=== PATIENT | female | born 2000 | race Caucasian/White ===

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

== ENCOUNTER 2025-02-02 12:18 | Emergency (ER) | payer MEDICAID | END 2025-02-02 14:02 | disposition home or self-care (01) | LOC: MW.ED 12:18 | DX: S92.535A Nondisplaced fracture of distal phalanx of left lesser toe(s), initial encounter for closed fracture (principal); S90.122A Contusion of left lesser toe(s) without damage to nail, initial encounter; Z88.8 Allergy status to other drugs, medicaments and biological substances; Z88.0 Allergy status to penicillin; Z91.040 Latex allergy status; X50.1XXA Overexertion from prolonged static or awkward postures, initial encounter | CPT/HCPCS: 73660; 81025; 99283; A9270; 99282 ==

== ENCOUNTER 2025-03-16 11:41 | Emergency (ER) | payer SELFPAY ==
[2025-03-16] MEDS: Benzocaine 20% Topical Spray UD MUCMEM ONE (12:55)
[2025-03-16] MEDS: Lidocaine 2% Viscous Solution 15 ML UD PO ONE (12:56)
[2025-03-16] MEDS: Orphenadrine 60 MG/2 ML Inj IM ONE (12:56)
== END 2025-03-16 14:13 | disposition home or self-care (01) ==
LOC: MW.ED 11:41
DX: J40 Bronchitis, not specified as acute or chronic (principal); M54.2 Cervicalgia; K08.89 Other specified disorders of teeth and supporting structures; Z75.3 Unavailability and inaccessibility of health-care facilities; Z91.040 Latex allergy status; Z88.0 Allergy status to penicillin; Z88.8 Allergy status to other drugs, medicaments and biological substances
CPT/HCPCS: 71046; 96372; 99283; A9270; J2360; J3490

== ENCOUNTER 2025-04-01 15:34 | Emergency (ER) | payer MEDICAID ==
[2025-04-01 16:15] LABS: BASOPHILS ABSOLUTE AUTO 0.04 K/uL (0.00-0.20); BASOPHILS PERCENT AUTO 0.5 % (0.0-1.0); EOSINOPHILS ABSOLUTE AUTO 0.12 K/uL (0.00-0.45); EOSINOPHILS PERCENT AUTO 1.4 % (0.0-6.0); IMMATURE GRAN ABSOLUTE AUTO 0.02 K/uL (0.00-0.05); IMMATURE GRAN PERCENT AUTO 0.2 % (0.0-0.4); LYMPHOCYTES ABSOLUTE AUTO 2.82 K/uL (1.00-4.80); LYMPHOCYTES PERCENT AUTO 32.0 % (24.0-44.0); MEAN PLATELET VOLUME 9.7 fL (9.4-12.3); MONOCYTES ABSOLUTE AUTO 0.58 K/uL (0.00-0.80); MONOCYTES PERCENT AUTO 6.6 % (0.0-8.0); NEUTROPHILS ABSOLUTE AUTO 5.23 K/uL (1.80-7.70); NEUTROPHILS PERCENT AUTO 59.3 % (41.0-71.0); NRBC ABSOLUTE 0.00 K/uL (0.00-0.02); NRBC PERCENT 0.0 /100WBC (0.0-0.2); PLATELET COUNT,PLT 315 K/uL (150-400); RED BLOOD CELL COUNT 4.35 M/uL (4.10-5.30); WHITE BLOOD CELL COUNT,WBC 8.81 K/uL (3.9-11.3)
[2025-04-01 16:37] LABS: A/G RATIO 0.9 (0.9-1.6); ALANINE AMINOTRANSFERASE,ALT 32.0 IU/L (14-63); ASPARTATE AMNIOTRANSFERASE,AST 14.0 IU/L (15-37); BILIRUBIN TOTAL 0.2 mg/dL (0.2-1.0); BLOOD UREA NITROGEN,BUN 8.0 mg/dL (7.0-18.0); CARBON DIOXIDE,CO2 26.9 mmol/L (21.0-32.0); CHLORIDE,CL 106.0 mmol/L (98-107); CREATININE 0.7 mg/dL (0.6-1.0); EST CRCL DRUG DOSING (CG) 101.63 mL/min; GLUCOSE RANDOM 118.0 mg/dL (74-106); POTASSIUM,K 3.6 mmol/L (3.5-5.1); PROTEIN TOTAL,TP 7.4 g/dL (6.4-8.2); SODIUM,NA 143.0 mmol/L (136-145)
[2025-04-01 16:38] LABS: ESTIMATED GFR 123.0 mL/min (>60)
[2025-04-01 17:14] LABS: APPEARANCE,URINE CLOUDY; GLUCOSE,URINE NEGATIVE (NEGATIVE); OCCULT BLOOD,URINE MODERATE (NEGATIVE)
[2025-04-01 17:26] LABS: EPITHELIAL CELLS,URINE MODERATE (NONE-FEW)
== END 2025-04-01 17:34 | disposition home or self-care (01) ==
LOC: MW.ED 15:34
DX: N39.0 Urinary tract infection, site not specified (principal); D64.9 Anemia, unspecified; Z88.6 Allergy status to analgesic agent; Z88.0 Allergy status to penicillin; Z91.013 Allergy to seafood; Z91.040 Latex allergy status; Z79.899 Other long term (current) drug therapy; Z75.3 Unavailability and inaccessibility of health-care facilities
CPT/HCPCS: 36415; 80053; 81001; 83690; 85025; 87086; 96360; 99284; J7030; 99283

== ENCOUNTER 2025-04-12 12:54 | Inpatient (IN) | payer MEDICAID ==
[2025-04-12] MEDS ORDERED: Sodium Chloride 0.9% 10 ML Syringe FLUSH PRN ×2 (13:50→22:02)
[2025-04-12] MEDS ORDERED: Sodium Chloride 0.9% 2.5 ML Syringe FLUSH PRN ×2 (13:50→22:02)
[2025-04-12 14:12] LABS: BASOPHILS ABSOLUTE AUTO 0.04 K/uL (0.00-0.20); BASOPHILS PERCENT AUTO 0.3 % (0.0-1.0); EOSINOPHILS ABSOLUTE AUTO 0.12 K/uL (0.00-0.45); EOSINOPHILS PERCENT AUTO 1.0 % (0.0-6.0); IMMATURE GRAN ABSOLUTE AUTO 0.04 K/uL (0.00-0.05); IMMATURE GRAN PERCENT AUTO 0.3 % (0.0-0.4); LYMPHOCYTES ABSOLUTE AUTO 2.52 K/uL (1.00-4.80); LYMPHOCYTES PERCENT AUTO 22.0 % (24.0-44.0); MEAN PLATELET VOLUME 9.7 fL (9.4-12.3); MONOCYTES ABSOLUTE AUTO 0.95 K/uL (0.00-0.80); MONOCYTES PERCENT AUTO 8.3 % (0.0-8.0); NEUTROPHILS ABSOLUTE AUTO 7.77 K/uL (1.80-7.70); NEUTROPHILS PERCENT AUTO 68.1 % (41.0-71.0); NRBC ABSOLUTE 0.00 K/uL (0.00-0.02); NRBC PERCENT 0.0 /100WBC (0.0-0.2); PLATELET COUNT,PLT 309 K/uL (150-400); RED BLOOD CELL COUNT 4.69 M/uL (4.10-5.30); WHITE BLOOD CELL COUNT,WBC 11.44 K/uL (3.9-11.3)
[2025-04-12 14:13] LABS: APPEARANCE,URINE CLOUDY; GLUCOSE,URINE NEGATIVE (NEGATIVE); OCCULT BLOOD,URINE LARGE (NEGATIVE)
[2025-04-12 14:17] LABS: EPITHELIAL CELLS,URINE MODERATE (NONE-FEW)
[2025-04-12 14:34] LABS: A/G RATIO 0.9 (0.9-1.6); ALANINE AMINOTRANSFERASE,ALT 31.0 IU/L (14-63); ASPARTATE AMNIOTRANSFERASE,AST 15.0 IU/L (15-37); BILIRUBIN TOTAL 0.2 mg/dL (0.2-1.0); BLOOD UREA NITROGEN,BUN 12.0 mg/dL (7.0-18.0); CARBON DIOXIDE,CO2 28.4 mmol/L (21.0-32.0); CHLORIDE,CL 105.0 mmol/L (98-107); CREATININE 0.7 mg/dL (0.6-1.0); EST CRCL DRUG DOSING (CG) 115.01 mL/min; GLUCOSE RANDOM 97.0 mg/dL (74-106); POTASSIUM,K 4.3 mmol/L (3.5-5.1); PROTEIN TOTAL,TP 7.6 g/dL (6.4-8.2); SODIUM,NA 141.0 mmol/L (136-145)
[2025-04-12 14:35] LABS: ESTIMATED GFR 123.0 mL/min (>60)
[2025-04-12] MEDS: Orphenadrine 60 MG/2 ML Inj IV ONE (15:49)
[2025-04-12] MEDS: Ondansetron 4 MG/2 ML SDV IVPUSH ONE ×2 (15:49→16:54)
[2025-04-12] MEDS: Ketorolac 30 MG/ML SDV IVPUSH ONE (16:54)
[2025-04-12] MEDS: cefTRIAXone 1 GM in Water For Injection, Sterile 10 ML IVPUSH ONE (18:12)
[2025-04-12] MEDS: Iopamidol 755 MG/ML 500 ML Multipack Bottle IVPUSH STA (19:56)
[2025-04-12] MEDS ORDERED: Naloxone 0.4 MG/ML SDV IVPUSH PRN (21:58)
[2025-04-12] MEDS: Ketorolac 30 MG/ML SDV IVPUSH PRN (23:10)
[2025-04-12] MEDS: Pantoprazole 40 MG in Sodium Chloride 0.9% 20 ML IVPUSH SCH (23:11)
[2025-04-12] MEDS: Ondansetron 4 MG/2 ML SDV IVPUSH PRN (23:11)
[2025-04-13 06:03] LABS: BASOPHILS ABSOLUTE AUTO 0.03 K/uL (0.00-0.20); BASOPHILS PERCENT AUTO 0.1 % (0.0-1.0); EOSINOPHILS ABSOLUTE AUTO 0.00 K/uL (0.00-0.45); EOSINOPHILS PERCENT AUTO 0.0 % (0.0-6.0); IMMATURE GRAN ABSOLUTE AUTO 0.45 K/uL (0.00-0.05); IMMATURE GRAN PERCENT AUTO 1.8 % (0.0-0.4); LYMPHOCYTES ABSOLUTE AUTO 0.48 K/uL (1.00-4.80); LYMPHOCYTES PERCENT AUTO 1.9 % (24.0-44.0); MEAN PLATELET VOLUME 10.2 fL (9.4-12.3); MONOCYTES ABSOLUTE AUTO 1.09 K/uL (0.00-0.80); MONOCYTES PERCENT AUTO 4.3 % (0.0-8.0); NEUTROPHILS ABSOLUTE AUTO 23.41 K/uL (1.80-7.70); NEUTROPHILS PERCENT AUTO 91.9 % (41.0-71.0); NRBC ABSOLUTE 0.00 K/uL (0.00-0.02); NRBC PERCENT 0.0 /100WBC (0.0-0.2); PLATELET COUNT,PLT 229 K/uL (150-400); RED BLOOD CELL COUNT 4.11 M/uL (4.10-5.30); WHITE BLOOD CELL COUNT,WBC 25.46 K/uL (3.9-11.3)
[2025-04-13 06:29] LABS: BLOOD UREA NITROGEN,BUN 15.0 mg/dL (7.0-18.0); CARBON DIOXIDE,CO2 25.4 mmol/L (21.0-32.0); CHLORIDE,CL 108.0 mmol/L (98-107); CREATININE 1.0 mg/dL (0.6-1.0); EST CRCL DRUG DOSING (CG) 80.51 mL/min; GLUCOSE RANDOM 141.0 mg/dL (74-106); POTASSIUM,K 3.7 mmol/L (3.5-5.1); SODIUM,NA 142.0 mmol/L (136-145)
[2025-04-13 06:36] LABS: ESTIMATED GFR 80.0 mL/min (>60)
[2025-04-13 10:18] LABS: LACTIC ACID 2.4 mmol/L (0.4-2.0)
[2025-04-13] MEDS ORDERED: cefTRIAXone 2 GM in Water For Injection, Sterile 20 ML IVPUSH SCH (15:00)
[2025-04-14 05:43] LABS: MEAN PLATELET VOLUME 10.4 fL (9.4-12.3); NRBC ABSOLUTE 0.00 K/uL (0.00-0.02); NRBC PERCENT 0.0 /100WBC (0.0-0.2); PLATELET COUNT,PLT 190 K/uL (150-400); RED BLOOD CELL COUNT 3.42 M/uL (4.10-5.30); WHITE BLOOD CELL COUNT,WBC 19.30 K/uL (3.9-11.3)
[2025-04-14 06:00] LABS: BASOPHILS ABSOLUTE MAN 0.19 K/uL (0.00-0.20); BASOPHILS PERCENT MAN 1 % (0-1); EOSINOPHILS ABSOLUTE MAN 0.19 K/uL (0.00-0.45); EOSINOPHILS PERCENT MAN 1 % (0-6); LYMPHOCYTES ABSOLUTE MAN 3.86 K/uL (1.00-4.80); LYMPHOCYTES PERCENT MAN 20 % (24-44); MONOCYTES ABSOLUTE MAN 1.54 K/uL (0.00-0.80); MONOCYTES PERCENT MAN 8 % (0-8); SEG NEUTROPHILS ABSOLUTE MAN 13.51 K/uL (1.80-7.70); SEG NEUTROPHILS PERCENT MAN 70 % (41-71)
[2025-04-14 06:06] LABS: BLOOD UREA NITROGEN,BUN 11.0 mg/dL (7.0-18.0); CARBON DIOXIDE,CO2 23.9 mmol/L (21.0-32.0); CHLORIDE,CL 115.0 mmol/L (98-107); CREATININE 0.8 mg/dL (0.6-1.0); EST CRCL DRUG DOSING (CG) 100.63 mL/min; GLUCOSE RANDOM 120.0 mg/dL (74-106); POTASSIUM,K 3.9 mmol/L (3.5-5.1); SODIUM,NA 144.0 mmol/L (136-145)
[2025-04-14 06:13] LABS: ESTIMATED GFR 105.0 mL/min (>60)
[2025-04-15 05:37] LABS: BASOPHILS ABSOLUTE AUTO 0.04 K/uL (0.00-0.20); BASOPHILS PERCENT AUTO 0.3 % (0.0-1.0); EOSINOPHILS ABSOLUTE AUTO 0.22 K/uL (0.00-0.45); EOSINOPHILS PERCENT AUTO 1.8 % (0.0-6.0); IMMATURE GRAN ABSOLUTE AUTO 0.05 K/uL (0.00-0.05); IMMATURE GRAN PERCENT AUTO 0.4 % (0.0-0.4); LYMPHOCYTES ABSOLUTE AUTO 3.55 K/uL (1.00-4.80); LYMPHOCYTES PERCENT AUTO 29.8 % (24.0-44.0); MEAN PLATELET VOLUME 10.3 fL (9.4-12.3); MONOCYTES ABSOLUTE AUTO 0.76 K/uL (0.00-0.80); MONOCYTES PERCENT AUTO 6.4 % (0.0-8.0); NEUTROPHILS ABSOLUTE AUTO 7.30 K/uL (1.80-7.70); NEUTROPHILS PERCENT AUTO 61.3 % (41.0-71.0); NRBC ABSOLUTE 0.00 K/uL (0.00-0.02); NRBC PERCENT 0.0 /100WBC (0.0-0.2); PLATELET COUNT,PLT 230 K/uL (150-400); RED BLOOD CELL COUNT 3.60 M/uL (4.10-5.30); WHITE BLOOD CELL COUNT,WBC 11.92 K/uL (3.9-11.3)
[2025-04-15 06:07] LABS: BLOOD UREA NITROGEN,BUN 7.0 mg/dL (7.0-18.0); CARBON DIOXIDE,CO2 28.2 mmol/L (21.0-32.0); CHLORIDE,CL 110.0 mmol/L (98-107); CREATININE 0.7 mg/dL (0.6-1.0); EST CRCL DRUG DOSING (CG) 115.01 mL/min; GLUCOSE RANDOM 110.0 mg/dL (74-106); POTASSIUM,K 4.1 mmol/L (3.5-5.1); SODIUM,NA 144.0 mmol/L (136-145)
[2025-04-15 06:09] LABS: ESTIMATED GFR 123.0 mL/min (>60)
[2025-04-15] MEDS: diphenhydrAMINE 50 MG/ML SDV IVPUSH ONE (12:05)
== END 2025-04-15 11:50 | disposition home or self-care (01) | DRG 690 ==
LOC: MW.ED 12:54 → MW.MS 18:02 → OBSVTOIN 18:02 → UNDOADMOB 18:33 → MW.MS 18:33
PROVIDERS: ADMIT Internal Medicine; ATTEND Internal Medicine
DX: N13.2 Hydronephrosis with renal and ureteral calculous obstruction (principal); N39.0 Urinary tract infection, site not specified; N10 Acute pyelonephritis; E87.20 Acidosis, unspecified; E86.0 Dehydration; K21.9 Gastro-esophageal reflux disease without esophagitis; Z75.3 Unavailability and inaccessibility of health-care facilities; Z88.8 Allergy status to other drugs, medicaments and biological substances; Z88.0 Allergy status to penicillin; Z91.040 Latex allergy status; Z91.013 Allergy to seafood; Z98.891 History of uterine scar from previous surgery
CPT/HCPCS: 36415; 74176; 80053; 81001; 81025; 83690; 83735; 85025; 87086; 87088; 87186; 96361; 96374; 96375; 96376; 99284; A9270; J1885; J2270; J2360; J2405 ×2; J7030; 80048; 83605; 87040; G0378; J0692; J0696; J1171; J2470

== ENCOUNTER 2025-05-27 14:07 | Emergency (ER) | payer MEDICAID | END 2025-05-27 15:04 | disposition home or self-care (01) | LOC: MW.ED 14:07 | DX: M25.561 Pain in right knee (principal); Z91.040 Latex allergy status; Z88.8 Allergy status to other drugs, medicaments and biological substances; Z88.0 Allergy status to penicillin; Z88.6 Allergy status to analgesic agent; Z91.013 Allergy to seafood; Z75.3 Unavailability and inaccessibility of health-care facilities; X58.XXXA Exposure to other specified factors, initial encounter | CPT/HCPCS: 73562-26-RT; 73562-RT; 99283 ==

== ENCOUNTER 2025-06-07 13:06 | Emergency (ER) | payer MEDICAID ==
[2025-06-07 13:39] LABS: GLUCOSE,URINE NEGATIVE (NEGATIVE); OCCULT BLOOD,URINE SMALL (NEGATIVE)
[2025-06-07 13:41] LABS: APPEARANCE,URINE HAZY
[2025-06-07] MEDS ORDERED: Sodium Chloride 0.9% 10 ML Syringe FLUSH PRN (13:44)
[2025-06-07] MEDS ORDERED: Sodium Chloride 0.9% 2.5 ML Syringe FLUSH PRN (13:44)
[2025-06-07 13:48] LABS: EPITHELIAL CELLS,URINE MANY (NONE-FEW)
[2025-06-07 13:49] LABS: BASOPHILS ABSOLUTE AUTO 0.02 K/uL (0.00-0.20); BASOPHILS PERCENT AUTO 0.2 % (0.0-1.0); EOSINOPHILS ABSOLUTE AUTO 0.10 K/uL (0.00-0.45); EOSINOPHILS PERCENT AUTO 1.0 % (0.0-6.0); IMMATURE GRAN ABSOLUTE AUTO 0.03 K/uL (0.00-0.05); IMMATURE GRAN PERCENT AUTO 0.3 % (0.0-0.4); LYMPHOCYTES ABSOLUTE AUTO 2.76 K/uL (1.00-4.80); LYMPHOCYTES PERCENT AUTO 27.1 % (24.0-44.0); MEAN PLATELET VOLUME 9.7 fL (9.4-12.3); MONOCYTES ABSOLUTE AUTO 0.69 K/uL (0.00-0.80); MONOCYTES PERCENT AUTO 6.8 % (0.0-8.0); NEUTROPHILS ABSOLUTE AUTO 6.60 K/uL (1.80-7.70); NEUTROPHILS PERCENT AUTO 64.6 % (41.0-71.0); NRBC ABSOLUTE 0.00 K/uL (0.00-0.02); NRBC PERCENT 0.0 /100WBC (0.0-0.2); PLATELET COUNT,PLT 303 K/uL (150-400); RED BLOOD CELL COUNT 4.28 M/uL (4.10-5.30); WHITE BLOOD CELL COUNT,WBC 10.20 K/uL (3.9-11.3)
[2025-06-07 14:01] LABS: A/G RATIO 0.9 (0.9-1.6); ALANINE AMINOTRANSFERASE,ALT 26.0 IU/L (14-63); ASPARTATE AMNIOTRANSFERASE,AST 12.0 IU/L (15-37); BILIRUBIN TOTAL 0.1 mg/dL (0.2-1.0); BLOOD UREA NITROGEN,BUN 12.0 mg/dL (7.0-18.0); CARBON DIOXIDE,CO2 28.3 mmol/L (21.0-32.0); CHLORIDE,CL 107.0 mmol/L (98-107); CREATININE 0.7 mg/dL (0.6-1.0); EST CRCL DRUG DOSING (CG) 101.63 mL/min; GLUCOSE RANDOM 106.0 mg/dL (74-106); POTASSIUM,K 3.8 mmol/L (3.5-5.1); PROTEIN TOTAL,TP 7.3 g/dL (6.4-8.2); SODIUM,NA 142.0 mmol/L (136-145)
[2025-06-07 14:08] LABS: ESTIMATED GFR 123.0 mL/min (>60)
== END 2025-06-07 14:54 | disposition home or self-care (01) ==
LOC: MW.ED 13:06
DX: N10 Acute pyelonephritis (principal); K21.9 Gastro-esophageal reflux disease without esophagitis; Z88.6 Allergy status to analgesic agent; Z91.040 Latex allergy status; Z91.013 Allergy to seafood; Z88.8 Allergy status to other drugs, medicaments and biological substances
CPT/HCPCS: 36415; 80053; 81001; 83690; 83735; 85025; 96360; 99284; A9270; J7030; 99283

== ENCOUNTER 2025-06-10 16:18 | Emergency (ER) | payer MEDICAID ==
[2025-06-10] MEDS ORDERED: Sodium Chloride 0.9% 10 ML Syringe FLUSH PRN (16:23)
[2025-06-10] MEDS ORDERED: Sodium Chloride 0.9% 2.5 ML Syringe FLUSH PRN (16:23)
[2025-06-10 17:18] LABS: BASOPHILS ABSOLUTE AUTO 0.03 K/uL (0.00-0.20); BASOPHILS PERCENT AUTO 0.3 % (0.0-1.0); EOSINOPHILS ABSOLUTE AUTO 0.12 K/uL (0.00-0.45); EOSINOPHILS PERCENT AUTO 1.1 % (0.0-6.0); IMMATURE GRAN ABSOLUTE AUTO 0.02 K/uL (0.00-0.05); IMMATURE GRAN PERCENT AUTO 0.2 % (0.0-0.4); LYMPHOCYTES ABSOLUTE AUTO 2.75 K/uL (1.00-4.80); LYMPHOCYTES PERCENT AUTO 25.5 % (24.0-44.0); MEAN PLATELET VOLUME 9.2 fL (9.4-12.3); MONOCYTES ABSOLUTE AUTO 0.82 K/uL (0.00-0.80); MONOCYTES PERCENT AUTO 7.6 % (0.0-8.0); NEUTROPHILS ABSOLUTE AUTO 7.05 K/uL (1.80-7.70); NEUTROPHILS PERCENT AUTO 65.3 % (41.0-71.0); NRBC ABSOLUTE 0.00 K/uL (0.00-0.02); NRBC PERCENT 0.0 /100WBC (0.0-0.2); PLATELET COUNT,PLT 304 K/uL (150-400); RED BLOOD CELL COUNT 4.25 M/uL (4.10-5.30); WHITE BLOOD CELL COUNT,WBC 10.79 K/uL (3.9-11.3)
[2025-06-10 17:40] LABS: A/G RATIO 0.9 (0.9-1.6); ALANINE AMINOTRANSFERASE,ALT 25.0 IU/L (14-63); ASPARTATE AMNIOTRANSFERASE,AST 12.0 IU/L (15-37); BILIRUBIN TOTAL 0.2 mg/dL (0.2-1.0); BLOOD UREA NITROGEN,BUN 14.0 mg/dL (7.0-18.0); CARBON DIOXIDE,CO2 27.6 mmol/L (21.0-32.0); CHLORIDE,CL 105.0 mmol/L (98-107); CREATININE 0.7 mg/dL (0.6-1.0); EST CRCL DRUG DOSING (CG) 101.63 mL/min; GLUCOSE RANDOM 79.0 mg/dL (74-106); POTASSIUM,K 3.8 mmol/L (3.5-5.1); PROTEIN TOTAL,TP 7.6 g/dL (6.4-8.2); SODIUM,NA 141.0 mmol/L (136-145)
[2025-06-10 17:43] LABS: ESTIMATED GFR 123.0 mL/min (>60)
[2025-06-10] MEDS: Ondansetron 4 MG/2 ML SDV IVPUSH ONE ×2 (18:18→20:15)
[2025-06-10 18:35] LABS: APPEARANCE,URINE SLT CLOUDY; GLUCOSE,URINE NEGATIVE (NEGATIVE); OCCULT BLOOD,URINE SMALL (NEGATIVE)
[2025-06-10 18:40] LABS: EPITHELIAL CELLS,URINE RARE (NONE-FEW)
[2025-06-10 21:48] LABS: CANDIDA DNA PROBE NEGATIVE (NEGATIVE); GARDNERELLA DNA PROBE POSITIVE (NEGATIVE); TRICHOMONAS DNA PROBE NEGATIVE (NEGATIVE)
[2025-06-10 22:28] LABS: C. TRACHOMATIS BY PCR NOT DETECTED; N. GONORRHOEAE BY PCR NOT DETECTED
== END 2025-06-11 00:43 | disposition home or self-care (01) ==
LOC: MW.ED 16:18
DX: N76.0 Acute vaginitis (principal); G89.29 Other chronic pain; N83.9 Noninflammatory disorder of ovary, fallopian tube and broad ligament, unspecified; Z88.6 Allergy status to analgesic agent; Z88.8 Allergy status to other drugs, medicaments and biological substances; Z91.040 Latex allergy status; Z91.013 Allergy to seafood; Z88.0 Allergy status to penicillin; Z79.899 Other long term (current) drug therapy
CPT/HCPCS: 36415; 74176; 76830; 80053; 81001; 83690; 83735; 84703; 85025; 87480; 87491; 87510; 87591; 87660; 96374; 96375; 96376; 99284; J2270; J2405; J7030; 99283